=== PATIENT | male | born 1955 | race Caucasian/White ===

== ENCOUNTER 2016-06-08 03:32 | Emergency (ER) | payer BC ==
[~2016-06-08] VITALS: Ht 180.3 cm; Wt 93.0 kg
[2016-06-08 03:36] VITALS: BP 162/91
[2016-06-08] MEDS ORDERED: OSEL75CA PO (03:54)
[2016-06-08] MEDS ORDERED: ASPI81TA85 PO (03:54)
[2016-06-08] MEDS ORDERED: LANTINJ4 SC ×2 (03:54)
[2016-06-08] MEDS ORDERED: VITA250L PO (03:54)
[2016-06-08] MEDS ORDERED: CRES5TAB PO (03:54)
[2016-06-08] MEDS ORDERED: INSUH10VL SC (03:54)
[2016-06-08] MEDS ORDERED: VITA-130 PO (03:54)
[2016-06-08] MEDS ORDERED: QUIN40TA5 PO (03:54)
[2016-06-08] MEDS ORDERED: VITA-115 PO (03:54)
[2016-06-08] MEDS ORDERED: METF500T4 PO (03:54)
[2016-06-08] MEDS ORDERED: FISH1000 PO (03:54)
== END 2016-06-08 07:01 | disposition home or self-care (01) ==
LOC: M ED 04:23
DX: S80.862A Insect bite (nonvenomous), left lower leg, initial encounter (principal); W57.XXXA Bitten or stung by nonvenomous insect and other nonvenomous arthropods, initial encounter; Y92.89 Other specified places as the place of occurrence of the external cause; Y93.89 Activity, other specified; Y99.8 Other external cause status

== ENCOUNTER 2016-12-25 08:14 | Outpatient (CLI) | payer BC ==
[~2016-12-25] VITALS: Ht 180.3 cm; Wt 96.2 kg
[~2016-12-25 08:14] MED LIST: ASPI81TA85 PO; CRES5TAB PO; FISH1000 PO; INSUH10VL SC; LANTINJ4 SC; METF500T4 PO; OSEL75CA PO; QUIN1TAB15 PO; VITA-115 PO; VITA250L PO; VITA500T PO
[2016-12-25] MEDS ORDERED: NS 1,000 ML IV ONE (08:30)
[2016-12-25] MEDS ORDERED: LIDOCAINE 2% INJ 100 MG/5 ML SDV (FOR ANES.) As Ordered ONE (09:51)
[2016-12-25] MEDS ORDERED: PROPOFOL 200 MG/20 ML VIAL As Ordered ONE (09:51)
--- NOTE | 2016-12-25 10:09 | ROOR ---
Patient Name: Alex Goodrich Procedure Date: 12/25/2016 9:46 AM Date of : 1955 Age: 61 Room: [facility] Gender: Male Note Status: Finalized Procedure: Colonoscopy Indications: High risk colon cancer surveillance: Personal history of colonic polyps, Last colonoscopy: December 2011 Providers: Alan RICHARD MD Referring MD: Brant Estes MD Requesting Provider: Medicines: Monitored Anesthesia Care Complications: No immediate complications. Procedure: Pre-Anesthesia Assessment: - The heart rate, respiratory rate, oxygen saturations, blood pressure, adequacy of pulmonary ventilation, and response to care were monitored throughout the procedure. The Colonoscope was introduced through the anus and advanced to the cecum, identified by appendiceal orifice and ileocecal valve. The colonoscopy was performed without difficulty. The patient tolerated the procedure well. The quality of the bowel preparation was good. Findings: The perianal and digital rectal examinations were normal. A 4 mm polyp was found in the sigmoid colon. The polyp was sessile. The polyp was removed with a cold snare. Resection and retrieval were complete. Small Internal Hemorrhoids. The exam was otherwise without abnormality on direct and retroflexion views. Impression: - One 4 mm polyp in the sigmoid colon, removed with a cold snare. Resected and retrieved. - Small Internal Hemorrhoids. - The examination was otherwise normal on direct and retroflexion views. Recommendation: - Repeat colonoscopy in 5 years for surveillance based on personal history of previous adenomatous polyps. Alan Richard MD Alan RICHARD MD 12/25/2016 10:08:35 AM This report has been signed electronically. Number of Addenda: 0 Note Initiated On: 12/25/2016 9:46 AM Estimated Blood Loss: Estimated blood loss: none.
[2016-12-25 10:31] VITALS: BP 123/72
== END 2016-12-25 10:33 | disposition home or self-care (01) ==
LOC: M OPP 08:14
PROVIDERS: ATTEND Internal Medicine Gastroenterology
DX: Z12.11 Encounter for screening for malignant neoplasm of colon (principal); Z86.010 Personal history of colon polyps; D12.5 Benign neoplasm of sigmoid colon; K64.8 Other hemorrhoids; I10 Essential (primary) hypertension; E78.5 Hyperlipidemia, unspecified; E10.9 Type 1 diabetes mellitus without complications; R12 Heartburn; R51 Headache; R06.83 Snoring; Z88.8 Allergy status to other drugs, medicaments and biological substances; Z79.82 Long term (current) use of aspirin; Z79.899 Other long term (current) drug therapy; Z80.51 Family history of malignant neoplasm of kidney; Z80.42 Family history of malignant neoplasm of prostate

== ENCOUNTER → 2023-12-05 | Outpatient (REF) | payer MEDICARE ==
[~2023-12-05] MED LIST changes: -ASPI81TA85 PO; +ASPI81TA86 PO; +METF-838 PO; -METF500T4 PO; -QUIN1TAB15 PO; +QUIN1TAB4 PO; +VITA-243 PO; -VITA500T PO
[2023-12-05 12:58] LABS: APPEARANCE, URINE CLEAR (CLEAR); BACTERIA, URINE AUTO NEGATIVE (NEGATIVE); BILIRUBIN, URINE AUTO NEGATIVE (NEGATIVE); BLOOD, URINE BLOOD NEGATIVE (NEGATIVE); COLOR, URINE STRAW (YELLOW); GLUCOSE, URINE (UA) AUTO 3+ mg/dL (NEGATIVE); KETONE, URINE AUTO NEGATIVE (NEGATIVE); LEUKOCYTE ESTERASE, URINE AUTO NEGATIVE (NEGATIVE); NITRITE, URINE AUTO NEGATIVE (NEGATIVE); PROTEIN, URINE AUTO NEGATIVE (NEGATIVE); RBC, URINE AUTO 0 /HPF (0-3); SPECIFIC GRAVITY URINE AUTO 1.014 (1.002-1.035); SQUAMOUS EPITHELIAL CELL UR AU 0 /HPF (0-6); UROBILINOGEN, URINE AUTO 0.2 mg/dL (0.0-2.0); WBC, URINE AUTO 1 /HPF (0-3)
== END ==
LOC: M SMT 12:22
PROVIDERS: ATTEND Urology
DX: R33.9 Retention of urine, unspecified (principal)

== ENCOUNTER → 2023-12-27 | Outpatient (CLI) | payer MEDICARE | LOC: M RAD 09:20 | PROVIDERS: ATTEND Urology | DX: R33.9 Retention of urine, unspecified (principal) ==

== ENCOUNTER → 2024-03-04 | Outpatient (CLI) | payer MEDICARE | LOC: M RAD 12:54 | PROVIDERS: ATTEND Urology | DX: N31.2 Flaccid neuropathic bladder, not elsewhere classified (principal) ==